=== PATIENT | male | born 1985 | race Caucasian/White ===

== ENCOUNTER → 2021-10-20 13:14 | Outpatient (BNVA) | payer SELFPAY | PROVIDERS: Visit Provider Nurse Practitioner Family | DX: M25.511 Pain in right shoulder (principal) | CPT/HCPCS: 73030 ==

== ENCOUNTER → 2021-10-29 10:38 | Outpatient (BNVA) | payer OTHER, SELFPAY | PROVIDERS: PCP Family Medicine; Visit Provider Nurse Practitioner Family | DX: Z20.822 Contact with and (suspected) exposure to COVID-19 (principal) | CPT/HCPCS: 87635 ==

== ENCOUNTER → 2021-11-25 14:51 | Outpatient (BNVA) | payer OTHER, SELFPAY | PROVIDERS: PCP Family Medicine; Visit Provider Nurse Practitioner Family | DX: Z20.822 Contact with and (suspected) exposure to COVID-19 (principal) | CPT/HCPCS: 87635 ==

== ENCOUNTER → 2021-12-01 13:56 | Outpatient (BNVA) | payer SELFPAY | PROVIDERS: PCP Family Medicine; Referring Provider Family Medicine; Visit Provider Specialist | DX: S43.004D Unspecified dislocation of right shoulder joint, subsequent encounter (principal); X58.XXXD Exposure to other specified factors, subsequent encounter | CPT/HCPCS: 73030 ==

== ENCOUNTER 2022-09-02 19:49 | Emergency (ER) | payer SELFPAY ==
[2022-09-02 19:52] VITALS: BP 158/90; PULSE 86; RESP 17; TEMP 36.6; O2SAT 96; BMI 37.1
[2022-09-02 19:57] VITALS: PULSE 85; RESP 16; O2SAT 96
--- NOTE | 2022-09-02 20:34 | CTR_ITS ---
PROCEDURE INFORMATION: Exam: CT Head Without Contrast Exam date and time: 09/02/2022 8:39 PM Age: 36 years old Clinical indication: Syncope and collapse; Patient HX: Syncopal episode. C/O dizziness. TECHNIQUE: Imaging protocol: Computed tomography of the head without contrast. Sagittal and coronal reformatted images were created and reviewed. Radiation optimization: All CT scans at this facility use at least one of these dose optimization techniques: automated exposure control; mA and/or kV adjustment per patient size (includes targeted exams where dose is matched to clinical indication); or iterative reconstruction. COMPARISON: No relevant prior studies available. RADIATION DOSE METRICS: Total DLP (mGy-cm): 1072.98 FINDINGS: Brain: No acute intracranial hemorrhage. No acute infarct. No intra-axial or extra-axial masses. Vazquez-white matter differentiation is preserved. No cerebral edema. No extra-axial fluid collections. No midline shift. No evidence for Chiari 1 malformation. Cerebral ventricles: No hydrocephalus. Paranasal sinuses: Visualized paranasal sinuses are clear. Mastoid air cells: Visualized mastoid air cells are clear. Orbital cavities: No acute abnormality in the visualized orbits. Nasal cavity: Mild left nasal septal deviation. Bones/joints: No acute fracture. Soft tissues: No acute abnormality of the extracranial soft tissues. CT/CT head wo con* [id number] IMPRESSION: 1. No acute abnormality of the brain. 2. Incidental/nonacute findings are listed in the report.
--- NOTE | 2022-09-02 20:34 | XRR_ITS ---
PROCEDURE INFORMATION: Exam: XR Chest Exam date and time: 09/02/2022 9:47 PM Age: 36 years old Clinical indication: Other: Syncope TECHNIQUE: Imaging protocol: Radiologic exam of the chest. Views: 1 view. COMPARISON: CR XR shoulder RT min 2V* [id number] 12/01/2021 2:02 PM FINDINGS: Lungs: Lungs are clear bilaterally. Pleural spaces: No pleural effusion. No pneumothorax. Heart/Mediastinum: The cardiac silhouette and mediastinal contours are unremarkable. Bones/joints: Unremarkable for age. XR/XR chest 1V portable [id number] IMPRESSION: Negative chest radiograph.
[2022-09-02 20:44] LABS: Basophils % 0.4 %; Eosinophils # 0.1 10^3/uL (0.0-0.8); Eosinophils % 1.4 %; Hematocrit 49.1 % (42.0-52.0); Hemoglobin 16.3 g/dL (11.7-16.6); Lymphocytes # 3.2 10^3/uL (0.8-4.8); Lymphocytes % 30.5 %; Mean Corpuscular HGB Conc 33.2 g/dL (30.0-36.0); Mean Corpuscular Hemoglobin 28.3 pg (28.0-34.0); Mean Corpuscular Volume 85.4 fl (80-94); Mean Platelet Volume 10.1 fL (7.4-10.4); Monocytes # 0.9 10^3/uL (0.2-0.9); Monocytes % 8.7 %; Neutrophils # 6.08 10^3/uL (1.8-7.7); Neutrophils % 58.5 %; Nucleated Red Blood Cells % 0 %; Platelet Count 314 10^3/cmm (130-400); Red Blood Count 5.75 10^6/uL (4.1-5.3); Red Cell Distribution Width 12.2 % (12.1-15.1); White Blood Count 10.4 10^3/uL (4.0-10.0)
[2022-09-02] MEDS: sodium chloride 0.9% 1,000 ML 999 ML IV (20:44)
[2022-09-02 21:00] LABS: Troponin(5th) Baseline 8 ng/L (0-15)
[2022-09-02 21:05] LABS: Alanine Aminotransferase 68 U/L (0-41); Albumin Level 4.9 g/dL (3.5-5.2); Alkaline Phosphatase 103 U/L (40-130); Aspartate Amino Transferase 30 U/L (0-40); Blood Urea Nitrogen 10 mg/dL (6-20); C Reactive Protein 4.5 mg/L (0.0-4.9); Calcium 9.5 mg/dL (8.5-10.5); Carbon Dioxide 24 mmol/L (22-29); Chloride 103 mmol/L (98-107); Globulin 2.9 g/dL (1.3-4.6); Glomerular Filtration Rate 126.9 mL/min (90-130); Glucose 85 mg/dL (65-115); Lipase 24 U/L (13-60); NT Pro B Type Natriuretic Pept 5 pg/mL (0-125); Osmolality Calculated 288 mOsm/kg (285-295); Sodium 140 mmol/L (136-145); Total Bilirubin 0.2 mg/dL (0.15-1.2); Total Protein 7.8 g/dL (6.6-8.7)
[2022-09-02 21:06] LABS: Alcohol Level < 10 mg/dL (0-10); Anion Gap 17.1 (5-19)
[2022-09-02 21:07] LABS: Potassium 4.1 mmol/L (3.5-5.1)
--- NOTE | 2022-09-02 21:38 | ED_ITS ---
HPI - Syncope General: Chief Complaint: Syncope Stated Complaint: SYNCOPE Time Seen by Provider: 09/02/22 19:57 History of Present Illness: 36-year-old male presents emergency department chief complaint of having a syncopal episode with dizziness prior to arrival he reports during the episode he had episode of loss of consciousness while on his bed he reports he had no chest pain no palpitations reports he had several incidences of this throughout the night he reports he is notices any recent trauma nor injury he does report drinking some alcohol tonight reports no drug use. Patient does not recall having any history of new right medications reports no history of any cardiac or pulmonary issues patient presents to the ER for further assessment and management. Associated symptoms: Deny abdominal pain, chest pain, fever(s), headache(s) or nausea Review of Systems General: Reports: 10 or more systems reviewed and unremarkable except in HPI and below Const: Denies: fever(s), chills, fatigue or malaise Eyes: Denies: change in vision or blurry vision Card: Denies: chest pain or palpitations Resp: Denies: dyspnea or productive cough GI: Denies: abdominal pain, nausea or vomiting : Denies: flank pain Musc: Denies: extremity pain or extremity swelling Skin/Breast: Denies: rash or pruritus Neuro: Reports: dizziness; Denies: headache(s) Psych: Denies: anxiety or depression Dejon/Lymph: Denies: easy bleeding All/Imm: Denies: urticaria, throat swelling or facial swelling [facility] ED PFSH: Medical History Radiculopathy of cervical spine Surgical History S/P rotator cuff surgery left shoulder 2000 Social History Smoking and tobacco status: never smoked Supplemental [facility] Information: Patient appears nontoxic appears in no obvious acute distress Physical Exam Narrative: EXAM NARRATIVE: Patient appears nontoxic appears in no obvious acute distress. Const: COMMON NORMALS: no acute distress, patient oriented x3 and healthy appearing HENMT: COMMON NORMALS: normocephalic and atraumatic HEAD & SCALP: normocephalic and atraumatic Eye: COMMON NORMALS: Equal, round and reactive pupils present and EOMs intact bilaterally PUPIL: Yes Equal, round and reactive pupils present Neck/C-Spine: COMMON NORMALS: full ROM, supple and no JVD Lymph: LYMPHATIC: no lymphadenopathy noted Chest: COMMONS NORMALS: normal inspection of the chest and normal palpation of entire chest wall Resp: COMMON NORMALS: normal respiratory effort, No retractions and clear to auscultation bilaterally EFFORT & INSPECTION: Yes able to speak in complete sentences and Yes symmetric chest movement AUSCULTATION: clear to auscultation bilaterally Cardio: COMMON NORMALS: no JVD, regular rate and regular rhythm RATE: regular rate RHYTHM: regular rhythm GI: COMMON NORMALS: Normal to inspection, nondistended, normoactive bowel sounds present, Soft to palpation and non-tender INSPECTION: Yes normal to inspection PALPATION: Yes Soft to palpation : COMMON NORMALS: Yes no CVA tenderness BLADDER/KIDNEY EXAM: Yes no CVA tenderness Back/Pelvis: COMMON NORMALS: no CVA tenderness Extremity: COMMON NORMALS: normal to inspection and full ROM Neuro: COMMON NORMALS: patient oriented x3, CN's II-XII intact bilaterally, moves all extremities and no focal motor deficits Psych: COMMON NORMALS: mental status grossly normal, Normal thought process present, cooperative and normal affect THOUGHT PROCESS: Normal thought process present Skin: COMMON NORMALS: no rashes or lesions noted GENERAL SKIN EXAM: no rashes or lesions noted Course Vital Signs: Vital signs: Vital Signs Temperature 97.9 F 09/02/22 19:52 Pulse Rate 85 09/02/22 19:57 Respiratory Rate 16 09/02/22 19:57 Blood Pressure 158/90 09/02/22 19:52 Pulse Oximetry 96 09/02/22 19:57 Oxygen Delivery Me thod 09/02/22 19:52 MDM - Syncope Medical Decision Making Due to the patient's symptoms and condition lab work and imaging will be obtained we will continue to follow patient appears to have no obvious acute symptoms at this time we will be doing a cardio and neuro work-up. Patient CT imaging the head came back unremarkable cardiac troponins and BNP and EKG came back unremarkable patient reports remarkable improvement of symptoms with IV fluids in which he was able to walk without difficulty which she felt much improved which is symptoms of nearly resolved patient appears to have a vertiginous episode will be started him on additional meclizine and some Zofran for associate symptoms advised to further follow-up with his primary care doctor in 3 to 5 days in which she was advised to return the interim if any of his symptoms persist or worse or return. Lab Data 09/02/22 20:00 09/02/22 20:00 Radiology Impressions Chest X-Ray 09/02/22:34 IMPRESSION: Negative chest radiograph. Head CT 09/02/22:34 IMPRESSION: 1. No acute abnormality of the brain. 2. Incidental/nonacute findings are listed in the report. Laboratory Results WBC 10.4 10^3/uL (4.0-10.0) H 09/02/22 20:00 RBC 5.75 10^6/uL (4.1-5.3) H 09/02/22 20:00 Hgb 16.3 g/dL (11.7-16.6) 09/02/22 20:00 Hct 49.1 % (42.0-52.0) 09/02/22 20:00 MCV 85.4 fl (80-94) 09/02/22 20:00 MCH 28.3 pg (28.0-34.0) 09/02/22 20:00 MCHC 33.2 g/dL (30.0-36.0) 09/02/22 20:00 RDW 12.2 % (12.1-15.1) 09/02/22 20:00 Plt Count 314 10^3/cmm (130-400) 09/02/22 20:00 MPV 10.1 fL (7.4-10.4) 09/02/22 20:00 Neut % (Auto) 58.5 % 09/02/22 20:00 Lymph % (Auto) 30.5 % 09/02/22 20:00 [place] % (Auto) 8.7 % 09/02/22 20:00 Eos % (Auto) 1.4 % 09/02/22 20:00 Baso % (Auto) 0.4 % 09/02/22 20:00 Neut # (Auto) 6.08 10^3/uL (1.8-7.7) 09/02/22 20:00 Lymph # (Auto) 3.2 10^3/uL (0.8-4.8) 09/02/22 20:00 [place] # (Auto) 0.9 10^3/uL (0.2-0.9) 09/02/22 20:00 Eos # (Auto) 0.1 10^3/uL (0.0-0.8) 09/02/22 20:00 Baso # (Auto) 0.0 10^3/uL (0.0-0.1) 09/02/22 20:00 Nucleated RBC % (auto) 0 % 09/02/22 20:00 Nucleated RBCs # 0.0 /100WBC 09/02/22 20:00 Sodium 140 mmol/L (136-145) 09/02/22 20:00 Potassium 4.1 mmol/L (3.5-5.1) 09/02/22 20:00 Chloride 103 mmol/L (98-107) 09/02/22 20:00 Carbon Dioxide 24 mmol/L (22-29) 09/02/22 20:00 Anion Gap 17.1 (5-19) 09/02/22 20:00 BUN 10 mg/dL (6-20) 09/02/22 20:00 Creatinine 0.7 mg/dL (0.7-1.2) 09/02/22 20:00 GFR Calculation 126.9 mL/min (90-130) 09/02/22 20:00 Glucose 85 mg/dL (65-115) 09/02/22 20:00 Calculated Osmolality 288 mOsm/kg (285-295) 09/02/22 20:00 Calcium 9.5 mg/dL (8.5-10.5) 09/02/22 20:00 Total Bilirubin 0.2 mg/dL (0.15-1.2) 09/02/22 20:00 AST 30 U/L (0-40) 09/02/22 20:00 ALT 68 U/L (0-41) H 09/02/22 20:00 Alkaline Phosphatase 103 U/L (40-130) 09/02/22 20:00 Troponin T Baseline 8 ng/L (0-15) 09/02/22 20:00 C-Reactive Protein 4.5 mg/L (0.0-4.9) 09/02/22 20:00 NT-Pro-B Natriuret Pep 5 pg/mL (0-125) 09/02/22 20:00 Total Protein 7.8 g/dL (6.6-8.7) 09/02/22 20:00 Albumin 4.9 g/dL (3.5-5.2) 09/02/22 20:00 Globulin 2.9 g/dL (1.3-4.6) 09/02/22 20:00 Lipase 24 U/L (13-60) 09/02/22 20:00 Urine Color Yellow (Yellow) 09/02/22 22:00 Urine Appearance Clear (CLEAR) 09/02/22 22:00 Urine pH 7 (5-7) 09/02/22 22:00 Ur Specific [place] 1.015 (1.005-1.030) 09/02/22 22:00 Urine Protein Neg (Negative) 09/02/22 22:00 Urine Glucose (UA) Norm (Normal) 09/02/22 22:00 Urine Ketones Negative (Negative) 09/02/22 22:00 Urine Blood Neg (Negative) 09/02/22 22:00 Urine Nitrate Negative (Negative) 09/02/22 22:00 Urine Bilirubin Neg (Negative) 09/02/22 22:00 Urine Urobilinogen Norm mg/dL (Negative) 09/02/22 22:00 Ur Leukocyte Esterase Negative (Negative) 09/02/22 22:00 Urine Opiates Screen Negative ng/mL (Negative) 09/02/22 22:00 Ur Barbiturates Screen Negative ng/mL (Negative) 09/02/22 22:00 Ur Phencyclidine Scrn Negative ng/mL (Negative) 09/02/22 22:00 Ur Amphetamines Screen Negative ng/mL (Negative) 09/02/22 22:00 U Benzodiazepines Scrn Negative ng/mL (Negative) 09/02/22 22:00 Urine Cocaine Screen Negative ng/mL (Negative) 09/02/22 22:00 U Marijuana (THC) Screen Negative ng/mL (Negative) 09/02/22 22:00 Ethyl Alcohol < 10 mg/dL (0-10) 09/02/22 20:00 Discharge Plan Discharge Patient Disposition: Home Clinical Impression: Syncope, Dizziness Condition: Stable Prescriptions: New meclizine 25 mg tablet 25 mg PO TID PRN (Reason: dizziness) Qty: 30 0RF ondansetron 4 mg tablet,disintegrating 4 mg PO TID PRN (Reason: nausea and vomiting) 4 Days Qty: 14 0RF Discharge Orders: Discharge ED (Routine); Ordered 09/02/22 Ordered By: Dain Boo Referrals: Louis Morse MD [Primary Care Provider] - 4-7 days Discharge Diet: Advance as tolerated Discharge Activity: Increase activity as tolerated Patient Instructions: Vertigo (ED), Near Syncope (ED), Lightheadedness (ED), Dizziness (ED) Activity Restrictions/Additional Instructions: Follow-up with your primary care doctor in 3 to 5 days as needed in which you are advised to return the interim if any of your symptoms persist or worsen, please take medication as prescribed for your breakthrough symptoms. It is additionally advised you to increase your water consumption to reduce the likelihood of additional recurrences of this. Coding Level of Care Code ED Telephone Instrument Supervisor for [place] Fwd Exam Comprehensive
[2022-09-02 22:08] LABS: Add Urine Microscopic? NO; Charge for UA Resulting for Rev
[2022-09-02 22:10] LABS: Bilirubin Urine Neg (Negative); Blood Urine Neg (Negative); Glucose Urine UA Norm (Normal); Ketones Urine Negative (Negative); Leukocyte Esterase Urine Negative (Negative); Nitrate Urine Negative (Negative); Protein Urine Neg (Negative); Specific Gravity, Urine 1.015 (1.005-1.030); Urine Appearance Clear (CLEAR); Urine Color Yellow (Yellow); Urobilinogen Urine Norm (Negative); pH Urine 7 (5-7)
[2022-09-02 22:19] LABS: Amphetamines Screen Urine Negative (Negative); Barbiturates Screen Urine Negative (Negative); Benzodiazepines Screen Urine Negative (Negative); Cocaine Screen Urine Negative (Negative); Opiate Screen Urine Negative (Negative); PCP Screen Urine Negative (Negative); THC Screen Urine Negative (Negative)
[2022-09-02 22:26] VITALS: BP 133/87; PULSE 89; RESP 16; O2SAT 97
--- NOTE | 2022-09-02 22:35 | ECG_ITS ---
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 Measurements Intervals [place] Rate: 79 P: 38 [place]: 148 QRS: 14 QRSD: 88 T: 16 QT: 339 QTc: 390 Interpretive Statements SINUS RHYTHM No previous ECG available for comparison Electronically Signed On 09-03-2022 12:48:25 LEAD JAVASCRIPT DEVELOPER by Vilma Piper M.D. [id number]
[2022-09-02 22:39] VITALS: BP 133/87; PULSE 89; RESP 16; O2SAT 97
[2022-09-02 22:48] LABS: Troponin 5 2HR 7.66 ng/L (0-15)
[2022-09-03 01:11] LABS: Troponin 5 2HR Delta -0.34 ABS# (0-10)
== END 2022-09-02 22:42 | disposition home or self-care (01) ==
PROVIDERS: Emergency Provider Emergency Medicine; PCP Family Medicine
DX: R55 Syncope and collapse (principal); R42 Dizziness and giddiness
CPT/HCPCS: 70450; 71045; 80053; 80306; 80307; 81003; 83690; 83880; 84484; 85025; 86140; 93005; 96361; 99285; J7030

== ENCOUNTER 2022-09-03 08:42 | Emergency (ER) | payer SELFPAY ==
[2022-09-03 08:50] VITALS: BP 154/89; PULSE 92; RESP 18; TEMP 36.9; O2SAT 98; BMI 35.5
--- NOTE | 2022-09-03 09:16 | ED_ITS ---
HPI - Headache General: Chief Complaint: Headache Stated Complaint: Headache/dizzy Time Seen by Provider: 09/03/22 08:57 History of Present Illness: 36-year-old male presents emergency department chief complaint of dizziness x 2 days with nausea. Pt denies any abd pain. Pt was seen here yesterday for same complaint with negative workup. he reports he had no chest pain no palpitations reports he had several incidences of this throughout the night he reports he is notices any recent trauma nor injury. Patient states he is otherwise healthy and takes no meds. denies etoh and drug use. Associated symptoms: Deny abdominal pain, chest pain, fever(s), headache(s) or nausea PFSH ED PFSH: Medical History Radiculopathy of cervical spine Surgical History S/P rotator cuff surgery left shoulder 2000 Social History Smoking and tobacco status: never smoked Course Vital Signs: Vital signs: Vital Signs Temperature 98.4 F 09/03/22 09:56 Pulse Rate 72 09/03/22 13:56 Respiratory Rate 18 09/03/22 13:56 Blood Pressure 154/89 09/03/22 09:56 Pulse Oximetry 98 09/03/22 09:56 Oxygen Delivery Me thod 09/03/22 09:56 MDM - Headache Medical Decision Making Patient is well-appearing nontoxic and in no acute distress. Given patient's continued vertigo I did order an EKG initial EKG appeared to have a change in lead V3 however after further investigation this looked to be like of lead placement issue repeat EKG looks unchanged from previous EKG on 1123 shows sinus rhythm with a ventricular rate of 66 bpm. Did check orthostatics on patient these were negative. I did give patient a liter of fluids. Patient did remain dizzy. Checked cardiac enzymes a delta Trope was within normal limits there was no ST elevation or depression noted on EKG this making cardiac ischemia unlikely. Patient's labs revealed no concerning findings electrolytes are all within normal limits. I did check a D-dimer given patient's dizziness this was then within normal limits. Given patient's continued vertigo I will order CTA head and neck. Patient: Raul Strickland Unit #: [id number] : 1985 Age/Sex: 36 / M ADM Date: 09/03/22 Loc: ER Room/Bed: Attending Dr: Ordering Provider/Ordering MD: Letitia Cartagena NP Date of Service: 09/03/22 Procedure(s): CT angio headneck* [id number] Accession Number(s): [id number] Report Number: [id number] PROCEDURE INFORMATION: Exam: CTA Head With Contrast, Arteriography Exam date and time: 09/03/2022 3:53 PM Age: 36 years old Clinical indication: Dizziness and giddiness and headache TECHNIQUE: Imaging protocol: Computed tomographic angiography of the head with contrast. Exam focused on the arteries. 3D rendering (Not supervised by radiologist): MIP and/or 3D reconstructed images were created by the technologist. Radiation optimization: All CT scans at this facility use at least one of these dose optimization techniques: automated exposure control; mA and/or kV adjustment per patient size (includes targeted exams where dose is matched to clinical indication); or iterative reconstruction. Contrast material: OMNI 350; Contrast volume: 100 ml; Contrast route: INTRAVENOUS (IV);? COMPARISON: CT head wo con* [id number] 09/02/2022 8:39 PM RADIATION DOSE METRICS: Total DLP (mGy-cm): 1180.03 FINDINGS: ANTERIOR CIRCULATION: Right internal carotid artery: Intracranial segment is patent with no significant stenosis. No aneurysm. Right middle cerebral artery: No occlusion or significant stenosis. No aneurysm.? Right anterior cerebral artery: No occlusion or significant stenosis. No aneurysm.? Left internal carotid artery: Intracranial segment is patent with no significant stenosis. No aneurysm. Left middle cerebral artery: No occlusion or significant stenosis. No aneurysm.? Left anterior cerebral artery: No occlusion or significant stenosis. No aneurysm.? POSTERIOR CIRCULATION: Right vertebral artery: No occlusion or significant stenosis. No aneurysm.? Left vertebral artery: No occlusion or significant stenosis. No aneurysm.? Basilar artery: No occlusion or significant stenosis. No aneurysm. Right posterior cerebral artery: No occlusion or significant stenosis. No aneurysm.? Left posterior cerebral artery: No occlusion or significant stenosis. No aneurysm.? Brain: No hemorrhage. No edema. Mild diffuse cerebral atrophy. No significant white matter disease. No mass effect. Cerebral ventricles: No ventriculomegaly. Bones/joints: Unremarkable. No acute fracture. Soft tissues: Unremarkable. PROCEDURE INFORMATION: Exam: CTA Neck With Contrast Exam date and time: 09/03/2022 3:53 PM Age: 36 years old Clinical indication: Dizziness and giddiness and headache TECHNIQUE: Imaging protocol: Computed tomographic angiography of the neck with contrast. 3D rendering (Not supervised by radiologist): MIP and/or 3D reconstructed images were created by the technologist. Radiation optimization: All CT scans at this facility use at least one of these dose optimization techniques: automated exposure control; mA and/or kV adjustment per patient size (includes targeted exams where dose is matched to clinical indication); or iterative reconstruction. Contrast material: OMNI 350; Contrast volume: 100 ml; Contrast route: INTRAVENOUS (IV);? COMPARISON: CT head wo con* [id number] 09/02/2022 8:39 PM RADIATION DOSE METRICS: Total DLP (mGy-cm): 1180.03 FINDINGS: Right common carotid artery: No stenosis. No dissection or occlusion. Right internal carotid artery: No stenosis of the extracranial segment. No dissection or occlusion. Right external carotid artery: No occlusion or stenosis of the origin.? Left common carotid artery: No stenosis. No dissection or occlusion. Left internal carotid artery: No stenosis of the extracranial segment. No dissection or occlusion. Left external carotid artery: No occlusion or stenosis of the origin.? Right vertebral artery: No stenosis. No dissection or occlusion. Left vertebral artery: No stenosis. No dissection or occlusion. Soft tissues: Normal. No significant soft tissue swelling. Bones/joints: No acute fracture. CT/CT angio headneck* [id number] IMPRESSION: No large vessel stenosis or occlusion. ? ? IMPRESSION: No stenosis or occlusion. ? REFERENCES: NASCET CRITERIA. The degree of stenosis in the cervical segment of the internal carotid artery is based on NASCET criteria. Normal is no stenosis. Mild is less than 50% stenosis. Moderate is 50-69% stenosis. Severe is 70% to 99% stenosis. Total occlusion is no detectable patent lumen. ? Lab Data 09/03/22 10:45 09/03/22 10:45 Radiology Impressions Chest X-Ray 09/03/22 10:14 IMPRESSION: No acute airspace or pleural disease. Head/Neck CTA 09/03/22 14:38 IMPRESSION: No large vessel stenosis or occlusion. IMPRESSION: No stenosis or occlusion. REFERENCES: NASCET CRITERIA. The degree of stenosis in the cervical segment of the internal carotid artery is based on NASCET criteria. Normal is no stenosis. Mild is less than 50% stenosis. Moderate is 50-69% stenosis. Severe is 70% to 99% stenosis. Total occlusion is no detectable patent lumen. Laboratory Results WBC 11.8 10^3/uL (4.0-10.0) H 09/03/22 10:45 RBC 5.27 10^6/uL (4.1-5.3) 09/03/22 10:45 Hgb 14.9 g/dL (11.7-16.6) 09/03/22 10:45 Hct 45.7 % (42.0-52.0) 09/03/22 10:45 MCV 86.7 fl (80-94) 09/03/22 10:45 MCH 28.3 pg (28.0-34.0) 09/03/22 10:45 MCHC 32.6 g/dL (30.0-36.0) 09/03/22 10:45 RDW 12.2 % (12.1-15.1) 09/03/22 10:45 Plt Count 265 10^3/cmm (130-400) 09/03/22 10:45 MPV 10.0 fL (7.4-10.4) 09/03/22 10:45 Neut % (Auto) 79.7 % 09/03/22 10:45 Lymph % (Auto) 12.1 % 09/03/22 10:45 [place] % (Auto) 7.1 % 09/03/22 10:45 Eos % (Auto) 0.3 % 09/03/22 10:45 Baso % (Auto) 0.3 % 09/03/22 10:45 Neut # (Auto) 9.37 10^3/uL (1.8-7.7) H 09/03/22 10:45 Lymph # (Auto) 1.4 10^3/uL (0.8-4.8) 09/03/22 10:45 [place] # (Auto) 0.8 10^3/uL (0.2-0.9) 09/03/22 10:45 Eos # (Auto) 0.0 10^3/uL (0.0-0.8) 09/03/22 10:45 Baso # (Auto) 0.0 10^3/uL (0.0-0.1) 09/03/22 10:45 Nucleated RBC % (auto) 0 % 09/03/22 10:45 Nucleated RBCs # 0.0 /100WBC 09/03/22 10:45 D-Dimer <= 0.27 ug/mIFEU (0-0.59) 09/03/22 10:45 Sodium 139 mmol/L (136-145) 09/03/22 10:45 Potassium 4.3 mmol/L (3.5-5.1) 09/03/22 10:45 Chloride 106 mmol/L (98-107) 09/03/22 10:45 Carbon Dioxide 22 mmol/L (22-29) 09/03/22 10:45 Anion Gap 15.3 (5-19) 09/03/22 10:45 BUN 8 mg/dL (6-20) 09/03/22 10:45 Creatinine 0.6 mg/dL (0.7-1.2) L 09/03/22 10:45 GFR Calculation 151.6 mL/min (90-130) H 09/03/22 10:45 Glucose 93 mg/dL (65-115) 09/03/22 10:45 Calculated Osmolality 286 mOsm/kg (285-295) 09/03/22 10:45 Calcium 9.4 mg/dL (8.5-10.5) 09/03/22 10:45 Total Bilirubin 0.5 mg/dL (0.15-1.2) 09/03/22 10:45 AST 21 U/L (0-40) 09/03/22 10:45 ALT 54 U/L (0-41) H 09/03/22 10:45 Alkaline Phosphatase 91 U/L (40-130) 09/03/22 10:45 Troponin T Gen 5 ng/L Cancelled 09/03/22 10:45 Troponin T Baseline 7 ng/L (0-15) 09/03/22 10:45 Troponin T 120 Minute 6.70 ng/L (0-15) 09/03/22 12:44 Delta Troponin T -0.30 ABS# (0-10) L 09/03/22 12:44 Total Protein 7.2 g/dL (6.6-8.7) 09/03/22 10:45 Albumin 4.5 g/dL (3.5-5.2) 09/03/22 10:45 Globulin 2.7 g/dL (1.3-4.6) 09/03/22 10:45 Influenza Type A Ag negative (Negative) 09/03/22 09:45 Influenza Type B Ag negative (Negative) 09/03/22 09:45 SARS-CoV-2 Ag (Rapid) negative (Negative) 09/03/22 09:45 Discharge Plan Discharge Patient Disposition: Home Clinical Impression: Vertigo Condition: Stable Prescriptions: No Action meclizine 25 mg tablet 25 mg PO TID PRN (Reason: dizziness) Qty: 30 0RF ondansetron 4 mg tablet,disintegrating 4 mg PO TID PRN (Reason: nausea and vomiting) 4 Days Qty: 14 0RF Discharge Orders: Discharge ED (Routine); Ordered 09/03/22 Ordered By: Letitia Cartagena Referrals: Louis Morse MD [Primary Care Provider] - Discharge Diet: Advance as tolerated Discharge Activity: Resume usual activity Patient Instructions: Opioid Safety, Pain Management Activity Restrictions/Additional Instructions: Please follow up with PCP Please return to ER with any worsening of symptoms Please continue to take Meclizine as prescribed Coding Level of Care Code ED Stone Breaker for Ailin Becerril
[2022-09-03] MEDS: sodium chloride 0.9% 1,000 ML 999 ML IV (09:51)
[2022-09-03] MEDS: ondansetron 2 mg/ML SDV 2 mL 4 MG IVP (09:51)
[2022-09-03 09:55] VITALS: BP 120/75; BP 144/85; BP 144/86
[2022-09-03 09:56] VITALS: BP 154/89; PULSE 92; RESP 18; TEMP 36.9; O2SAT 98
--- NOTE | 2022-09-03 10:03 | ECG_ITS ---
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 Measurements Intervals [place] Rate: 75 P: 30 MD: 155 QRS: 4 QRSD: 90 T: -7 QT: 346 QTc: 388 Interpretive Statements SINUS RHYTHM VOLTAGE CRITERIA FOR LVH [MEETS CRITERIA IN ONE OF: R(aVL), S(V1), R(V5), R(V5/V6)+S(V1)] Compared to ECG 09/02/2022 20:01:44 Left ventricular hypertrophy now present Electronically Signed On 09-03-2022 12:43:02 SUPERVISOR/PORT DIRECTOR by Vilma Piper M.D. [id number]
[2022-09-03 10:12] LABS: Influenza A by IFA negative (Negative); Influenza B by IFA negative (Negative)
[2022-09-03 10:13] LABS: SARS Covid-2 Antigen negative (Negative)
--- NOTE | 2022-09-03 10:14 | XRR_ITS ---
PROCEDURE INFORMATION: Exam: XR Chest Exam date and time: 09/03/2022 11:19 AM Age: 36 years old Clinical indication: Other: Dizziness TECHNIQUE: Imaging protocol: Radiologic exam of the chest. Views: 1 view. COMPARISON: CR (CHEST, ) 09/02/2022 9:47 PM FINDINGS: Lungs: Mild interstitial prominence without acute airspace disease. Pleural spaces: No pleural effusion. Heart/Mediastinum: Epicardial fat accentuates the cardiac silhouette. Bones/joints: Unremarkable. XR/XR chest 1V portable [id number] IMPRESSION: No acute airspace or pleural disease.
[2022-09-03 11:10] LABS: Basophils % 0.3 %; Eosinophils % 0.3 %; Hematocrit 45.7 % (42.0-52.0); Hemoglobin 14.9 g/dL (11.7-16.6); Lymphocytes # 1.4 10^3/uL (0.8-4.8); Lymphocytes % 12.1 %; Mean Corpuscular HGB Conc 32.6 g/dL (30.0-36.0); Mean Corpuscular Hemoglobin 28.3 pg (28.0-34.0); Mean Corpuscular Volume 86.7 fl (80-94); Monocytes # 0.8 10^3/uL (0.2-0.9); Monocytes % 7.1 %; Neutrophils # 9.37 10^3/uL (1.8-7.7); Neutrophils % 79.7 %; Nucleated Red Blood Cells % 0 %; Platelet Count 265 10^3/cmm (130-400); Red Blood Count 5.27 10^6/uL (4.1-5.3); Red Cell Distribution Width 12.2 % (12.1-15.1); White Blood Count 11.8 10^3/uL (4.0-10.0)
[2022-09-03 11:20] LABS: D Dimer <= 0.27 ug/mIFEU (0-0.59)
[2022-09-03 11:26] LABS: Alanine Aminotransferase 54 U/L (0-41); Albumin Level 4.5 g/dL (3.5-5.2); Alkaline Phosphatase 91 U/L (40-130); Anion Gap 15.3 (5-19); Aspartate Amino Transferase 21 U/L (0-40); Blood Urea Nitrogen 8 mg/dL (6-20); Calcium 9.4 mg/dL (8.5-10.5); Carbon Dioxide 22 mmol/L (22-29); Chloride 106 mmol/L (98-107); Globulin 2.7 g/dL (1.3-4.6); Glomerular Filtration Rate 151.6 mL/min (90-130); Glucose 93 mg/dL (65-115); Osmolality Calculated 286 mOsm/kg (285-295); Potassium 4.3 mmol/L (3.5-5.1); Sodium 139 mmol/L (136-145); Total Bilirubin 0.5 mg/dL (0.15-1.2); Total Protein 7.2 g/dL (6.6-8.7)
[2022-09-03 11:34] LABS: Troponin(5th) Baseline 7 ng/L (0-15)
--- NOTE | 2022-09-03 13:49 | ECG_ITS ---
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 Measurements Intervals [place] Rate: 66 P: 34 ND: 159 QRS: 3 QRSD: 88 T: 7 QT: 364 QTc: 384 Interpretive Statements SINUS RHYTHM Compared to ECG 09/03/2022 10:03:34 Left ventricular hypertrophy no longer present Electronically Signed On 09-04-2022 11:11:04 VISITOR SERVICES REPRESENTATIVE by Michael Serrano M.D. [id number]
[2022-09-03 13:56] VITALS: PULSE 72; RESP 18
--- NOTE | 2022-09-03 14:38 | CTR_ITS ---
PROCEDURE INFORMATION: Exam: CTA Head With Contrast, Arteriography Exam date and time: 09/03/2022 3:53 PM Age: 36 years old Clinical indication: Dizziness and giddiness and headache TECHNIQUE: Imaging protocol: Computed tomographic angiography of the head with contrast. Exam focused on the arteries. 3D rendering (Not supervised by radiologist): MIP and/or 3D reconstructed images were created by the technologist. Radiation optimization: All CT scans at this facility use at least one of these dose optimization techniques: automated exposure control; mA and/or kV adjustment per patient size (includes targeted exams where dose is matched to clinical indication); or iterative reconstruction. Contrast material: OMNI 350; Contrast volume: 100 ml; Contrast route: INTRAVENOUS (IV); COMPARISON: CT head wo con* [id number] 09/02/2022 8:39 PM RADIATION DOSE METRICS: Total DLP (mGy-cm): 1180.03 FINDINGS: ANTERIOR CIRCULATION: Right internal carotid artery: Intracranial segment is patent with no significant stenosis. No aneurysm. Right middle cerebral artery: No occlusion or significant stenosis. No aneurysm. Right anterior cerebral artery: No occlusion or significant stenosis. No aneurysm. Left internal carotid artery: Intracranial segment is patent with no significant stenosis. No aneurysm. Left middle cerebral artery: No occlusion or significant stenosis. No aneurysm. Left anterior cerebral artery: No occlusion or significant stenosis. No aneurysm. POSTERIOR CIRCULATION: Right vertebral artery: No occlusion or significant stenosis. No aneurysm. Left vertebral artery: No occlusion or significant stenosis. No aneurysm. Basilar artery: No occlusion or significant stenosis. No aneurysm. Right posterior cerebral artery: No occlusion or significant stenosis. No aneurysm. Left posterior cerebral artery: No occlusion or significant stenosis. No aneurysm. Brain: No hemorrhage. No edema. Mild diffuse cerebral atrophy. No significant white matter disease. No mass effect. Cerebral ventricles: No ventriculomegaly. Bones/joints: Unremarkable. No acute fracture. Soft tissues: Unremarkable. PROCEDURE INFORMATION: Exam: CTA Neck With Contrast Exam date and time: 09/03/2022 3:53 PM Age: 36 years old Clinical indication: Dizziness and giddiness and headache TECHNIQUE: Imaging protocol: Computed tomographic angiography of the neck with contrast. 3D rendering (Not supervised by radiologist): MIP and/or 3D reconstructed images were created by the technologist. Radiation optimization: All CT scans at this facility use at least one of these dose optimization techniques: automated exposure control; mA and/or kV adjustment per patient size (includes targeted exams where dose is matched to clinical indication); or iterative reconstruction. Contrast material: OMNI 350; Contrast volume: 100 ml; Contrast route: INTRAVENOUS (IV); COMPARISON: CT head wo con* [id number] 09/02/2022 8:39 PM RADIATION DOSE METRICS: Total DLP (mGy-cm): 1180.03 FINDINGS: Right common carotid artery: No stenosis. No dissection or occlusion. Right internal carotid artery: No stenosis of the extracranial segment. No dissection or occlusion. Right external carotid artery: No occlusion or stenosis of the origin. Left common carotid artery: No stenosis. No dissection or occlusion. Left internal carotid artery: No stenosis of the extracranial segment. No dissection or occlusion. Left external carotid artery: No occlusion or stenosis of the origin. Right vertebral artery: No stenosis. No dissection or occlusion. Left vertebral artery: No stenosis. No dissection or occlusion. Soft tissues: Normal. No significant soft tissue swelling. Bones/joints: No acute fracture. CT/CT angio headneck* [id number] IMPRESSION: No large vessel stenosis or occlusion. IMPRESSION: No stenosis or occlusion. REFERENCES: NASCET CRITERIA. The degree of stenosis in the cervical segment of the internal carotid artery is based on NASCET criteria. Normal is no stenosis. Mild is less than 50% stenosis. Moderate is 50-69% stenosis. Severe is 70% to 99% stenosis. Total occlusion is no detectable patent lumen.
[2022-09-03] MEDS: diazePAM 2 mg Tablet PO (14:44)
[2022-09-03] MEDS: iohexol 350 mg/mL 500 mL Btl (per mL) IV (16:08)
[2022-09-03 18:09] VITALS: BP 144/73; PULSE 72; RESP 18; O2SAT 96
== END 2022-09-03 18:05 | disposition home or self-care (01) ==
PROVIDERS: Emergency Provider Registered Nurse; PCP Family Medicine
DX: R42 Dizziness and giddiness (principal); R11.0 Nausea; R51.9 Headache, unspecified
CPT/HCPCS: 70496; 70498; 71045; 80053; 84484; 85025; 85378; 87426; 87804; 93005; 96361; 96374; 99285; J2405; J7030; Q9967